=== PATIENT | male | born 1940 | race Caucasian/White ===

== ENCOUNTER 2017-07-31 06:25 | Day surgery (SDC) | payer MEDICARE ==
[~2017-07-31] VITALS: Ht 170.2 cm; Wt 87.5 kg
[~2017-07-31 06:25] MED LIST: ALTACE10 MG PO; AMITRIPTYLINE H25 MG PO; ANDROGEL2.5 G1 TD; ASPIRIN EC325 MG PO; ASPIRIN EC81 MG PO; CALCIUM 600 +1 EAC8 PO; CHILDREN'S ASPI81 M1 PO; CREON DR 6,0001 EACH PO; ECOTRIN325 MG PO; FEOSOL45 MG PO; FLUOXETINE HCL20 MG PO; GEMFIBROZIL600 MG PO; GLIPIZIDE XL10 MG PO; GLIPIZIDE XL5 MG PO; GLUCOPHAGE XR500 MG PO; KLOR-CON M2020 MEQ PO; LIPITOR20 MG PO; LIPITOR40 MG PO; MAGNESIUM400 M1 PO; METFORMIN HCL1000 MG PO; METFORMIN HCL500 MG PO; METOPROLOL SUCC25 MG PO; NORCO 5-325 TA1 EACH PO; OMEPRAZOLE20 MG PO; ONGLYZA5 MG PO; PERCOCET 5-3251 EACH PO; PROZAC10 MG PO; RAMIPRIL10 MG PO; TRELSTAR11.25 MG/2 IM; VENTOLIN HFA18 GM; VITAMIN C500 M2 PO; VITAMIN D2000 UNIT PO; [UNRECOGNIZED DRUG - OTHER] PO
--- NOTE | 2017-07-31 08:29 | NUR ---
07/31/17 0829 Verónica Lara 0806 RESP EVEN AND UNLABORED. RN GAVE REPORT OF LOWER BP, FLUIDS INCREASED. 0814 O2 DECREASED TO 2L NC, O2 SAT 100%. 0820 O2 REMOVED, O2 SAT 98% CONTINUING TO MONITOR BP. 0825 PT DRINKING SMALL SIPS OF WATER. BP 99/54.
--- NOTE | 2017-07-31 10:06 | OR ---
[facility] [address], [place] [address] Signed DATE OF OPERATION: 07/31/2017 SURGEON: Zach Cotter MD PREOPERATIVE DIAGNOSES: 1. History of colon cancer in December 2015, requiring right and sigmoid colectomy with part of ileum containing fistula. 2. Diverticulosis. POSTOPERATIVE DIAGNOSES: 1. A 4 mm polyp at 60 cm. 2. A 4 mm polyps x2 at 30 cm. 3. Colorectal anastomosis at 18 cm. 4. Internal anal skin tags x2. PROCEDURE: Colonoscopy with hot biopsy. ESTIMATED BLOOD LOSS: None. 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 Consequently, the sigmoid colon, the terminal ileum, and the right colon were all removed en bloc. Since that time, he has been doing well. He returns now for his annual followup colonoscopy. He has had diverticulosis in the past. He said he eats well and has good bowel movements. In fact, he has actually gained some weight. He said there is no family history of colon cancer or polyps. In the office, I reviewed colonoscopy with him along with its risks including, but not limited to, gas bloating, crampy abdominal pain, bleeding, perforation, requiring surgery, and missed diagnosis. We also discussed the need for IV conscious sedation. He expressed understanding and wished to proceed. PROCEDURE NOTE: Mari was taken into our endoscopy suite and placed in the left lateral decubitus position. He had received his preoperative antibiotics mainly because of his defibrillator. He was given divided doses of 4 mg of Versed and 100 mcg of fentanyl to cover the case. A digital rectal exam was performed and this was unremarkable. The adult colonoscope was introduced and advanced under direct visualization of camera up to his ileocolonic anastomosis. It was quite healthy without any evidence of recurrent Electronically Signed By: ZACH COTTER MD 07/31/17 1006 PATIENT NAME: MARI MACHADO OPERATIVE REPORT DATE OF : 40 PHYSICIAN: ZACH COTTER MD REPORT #: [id number] REPORT IS CONFIDENTIAL AND NOT TO BE RELEASED WITHOUT AUTHORIZATION [facility] [address], [place] [address] Signed disease and no granulation tissue or other issues. The scope was then slowly withdrawn. The above-mentioned polyps were removed with hot biopsy forceps. We saw no evidence of any diverticulosis. We can see his colorectal anastomosis at 18 cm. He has one silk stitch present on one area. Otherwise, it was quite clean. The rectum itself was unremarkable. Upon retroflexion of the scope, he has 2 internal anal skin tags. After this, the gas was suctioned out and the colonoscope removed. Mari tolerated the procedure quite well. RECOMMENDATIONS: I will see Mari back in my office in 7 to 14 days to review his results. He will need followup colonoscopy in a year. MD RIGOBERTO Starr/HILTONL /[id number] cc: MD Zach Lanier MD Dr. John Perry Robert C Quackenbush, MD Electronically Signed By: ZACH COTTER MD 07/31/17 1006 PATIENT NAME: MARI MACHADO OPERATIVE REPORT DATE OF : 40 PHYSICIAN: ZACH COTTER MD REPORT #: [id number] REPORT IS CONFIDENTIAL AND NOT TO BE RELEASED WITHOUT AUTHORIZATION
--- NOTE | 2017-07-31 11:12 | NUR ---
PT IS ALERT ORIENTED AND INFORMED. ROUTINE YEARLY SCOPE. PT FEELS VERY POSITIVE ABOUT A GOOD OUTCOME FROM SCOPE. PT REQUESTED PRAYER, WILL FOLLOW NEEDED
[2017-12-12] MEDS ORDERED: VITAMIN C500 M4 PO (10:54)
== END 2017-07-31 08:55 | disposition home or self-care (01) ==
LOC: OPS 06:25 → DS 06:25 → OPS 06:45
PROVIDERS: Colon & Rectal Surgery
PROC: 0DBE8ZX Excision of Large Intestine, Via Natural or Artificial Opening Endoscopic, Diagnostic (ICD-10-PCS; principal; 2017-07-31 06:45)
DX: Z12.11 Encounter for screening for malignant neoplasm of colon (principal); D12.6 Benign neoplasm of colon, unspecified; K63.89 Other specified diseases of intestine; K64.4 Residual hemorrhoidal skin tags; I25.2 Old myocardial infarction; I10 Essential (primary) hypertension; K44.9 Diaphragmatic hernia without obstruction or gangrene; K21.9 Gastro-esophageal reflux disease without esophagitis; E78.5 Hyperlipidemia, unspecified; E87.6 Hypokalemia; E11.9 Type 2 diabetes mellitus without complications; F32.9 Major depressive disorder, single episode, unspecified; M54.30 Sciatica, unspecified side; F41.9 Anxiety disorder, unspecified; D64.9 Anemia, unspecified; Z98.42 Cataract extraction status, left eye; Z98.41 Cataract extraction status, right eye; Z85.038 Personal history of other malignant neoplasm of large intestine; Z90.49 Acquired absence of other specified parts of digestive tract; Z90.89 Acquired absence of other organs; Z95.810 Presence of automatic (implantable) cardiac defibrillator; Z90.79 Acquired absence of other genital organ(s); Z98.890 Other specified postprocedural states; Z96.89 Presence of other specified functional implants; Z98.61 Coronary angioplasty status; Z85.118 Personal history of other malignant neoplasm of bronchus and lung; Z85.46 Personal history of malignant neoplasm of prostate; Z79.82 Long term (current) use of aspirin; Z79.899 Other long term (current) drug therapy
CPT/HCPCS: 88305; 99153; G0500; J2250; J3010; J7120

== ENCOUNTER 2018-08-27 10:12 | Emergency (ER) | payer MEDICARE ==
[~2018-08-27] VITALS: Ht 170.2 cm; Wt 93.0 kg
[~2018-08-27 10:12] MED LIST changes: +CALCIUM600 MG PO; +GLUCOTROL XL10 MG PO; +METOPROLOL SUC100 MG PO; +METOPROLOL SUCC50 MG PO; -PROZAC10 MG PO; +PROZAC20 MG PO; +VITAMIN C500 M4 PO
[2018-08-27] MEDS ORDERED: NORCO 5-325 TA1 EACH PO (11:07)
== END 2018-08-27 11:53 | disposition home or self-care (01) ==
LOC: ED 10:12
DX: S52.502A Unspecified fracture of the lower end of left radius, initial encounter for closed fracture (principal); W19.XXXA Unspecified fall, initial encounter; K21.9 Gastro-esophageal reflux disease without esophagitis; E11.9 Type 2 diabetes mellitus without complications; D64.9 Anemia, unspecified; Z87.891 Personal history of nicotine dependence; E78.00 Pure hypercholesterolemia, unspecified; Z88.0 Allergy status to penicillin; Z79.899 Other long term (current) drug therapy; Z79.84 Long term (current) use of oral hypoglycemic drugs; Z79.82 Long term (current) use of aspirin; Z85.46 Personal history of malignant neoplasm of prostate
CPT/HCPCS: 29125; 73110; 99283-25

== ENCOUNTER 2018-11-12 07:10 | Day surgery (SDC) | payer MEDICARE ==
[~2018-11-12] VITALS: Ht 170.2 cm; Wt 93.0 kg
[~2018-11-12 07:10] MED LIST changes: +GLIPIZIDE ER10 MG PO; +LISINOPRIL2.5 MG PO
--- NOTE | 2018-11-12 08:56 | NUR ---
11/12/18 0856 Verónica Balderrama 9075 PT ARRIVED TO PACU ON 3L VIA NC, RESP EVEN AND UNLABROED. PT DENIES PAIN AND NAUSEA. PLAN OF CARE DISCUSSED. PT ASLEEP OFF AND ON. ABD SOFT.
--- NOTE | 2018-11-12 09:51 | NUR ---
PT IS RELAXED, ALERT AND ORIENTED. HIS NICK ARRIVED, PT IS CALM AND IN HOPES THIS WILL BE THE LAST SCOPE FOR 3 YRS. WITH PT'S MED HISTORY THIS WOULD BE A BIG WIN! PT REQUESTED PRAYER, WILL FOLLOW NEEDED
--- NOTE | 2018-11-13 06:01 | OR ---
[facility] [address], [place] [address] Signed DATE OF OPERATION: 11/12/2018 SURGEON: Zach Cotter MD PREOPERATIVE DIAGNOSES: 1. T4 sigmoid colon cancer involving the sigmoid colon, terminal ileum in 2016. 2. Diverticulosis. POSTOPERATIVE DIAGNOSES: 1. 4 mm polyps x2 at 32 cm. 2. A red lesion/area on distal left colon staple line (4 mm). 3. Fcsprxu-yb-ekegvmff internal hemorrhoids with skin tags. 4. Colorectal anastomosis at 18 cm. PROCEDURE PERFORMED: Colonoscopy with hot biopsy. ESTIMATED BLOOD LOSS: None. INDICATIONS: Mari is a 78-year-old gentleman who came to us in 2016 with a T4 sigmoid colon cancer. It required resection of sigmoid colon, the terminal ileum and right colectomy. He has a Johnson side-to-end colorectal anastomosis and a stapled ileocolonic anastomosis to the proximal transverse colon. He is known to have some diverticulosis, although I did not see that today. He returns now for a followup colonoscopy. Because of his testing by his oncologist, he did not require any chemotherapy as his tumor would not respond to it. In the meantime, he said he is doing great. He does have a defibrillator. In the office, I gave Mari a pamphlet on colonoscopy and we did review that together. Of course, he understands it quite well at this point in his life. He understands there is risk including, but not limited to gas, bloating, crampy abdominal pain, bleeding, perforation, requiring surgery, and missed diagnosis. He has also done well with Versed and fentanyl in the past. He expressed understanding and wished to proceed. DESCRIPTION OF PROCEDURE: Mari was taken into the endoscopy suite and placed in a left lateral decubitus position. We went ahead and gave him some IV antibiotics because of his defibrillator. He was given 2 mg of Versed and 75 mcg fentanyl to cover the case. A digital rectal exam was performed and he has no prostate gland. He has good sphincter tone. Very little in the way of external hemorrhoid tissue. The adult colonoscope was then Electronically Signed By: ZACH COTTER MD 11/13/18 0601 PATIENT NAME: MARI MACHADO OPERATIVE REPORT DATE OF : 40 REPORT #: [id number] PHYSICIAN: ZACH COTTER MD PCP: ROSALIA CHAMBERS MD REPORT IS CONFIDENTIAL AND NOT TO BE RELEASED WITHOUT AUTHORIZATION [facility] [address], [place] [address] Signed introduced and advanced all around into the proximal transverse colon without difficulty. His prep was average. He had some areas of liquid mucousy stool. I could not quite irrigate and suctioned off completely. The ileocolonic anastomosis was unremarkable. The scope was slowly withdrawn. We took out two small polyps at 32 cm with hot biopsy forceps. When I got to the distal left colon, I could see the staple line. There was one area that was a little red, probably just reaction to the sierra. I went ahead and took a hot biopsy of that area and destroyed that completely. The anastomosis itself was well healed. There was no evidence of any recurrent cancer. There is no ulceration on the anastomosis. It is widely patent. The rectum itself was unremarkable. Upon retroflexion of scope, he does have bmklxpo-[id number] internal hemorrhoid columns with associated skin tags x2. After this, the gas was suctioned out, colonoscope removed. Mari tolerated procedure quite well. RECOMMENDATIONS: I will see Mari back in my office in 7 to 14 days to review his results. Zach Cotter MD ALB/MODL /[id number] cc: MD Rosalia Kumar MD Robert C Quackenbush, MD Zach Cotter MD Copies: ROSALIA CHAMBERS MD,ZACH ROCHE MD, MD ~ Electronically Signed By: ZACH COTTER MD 11/13/18 0601 PATIENT NAME: MARI MACHADO OPERATIVE REPORT DATE OF : 40 REPORT #: [id number] PHYSICIAN: ZACH COTTER MD PCP: ROSALIA CHAMBERS MD REPORT IS CONFIDENTIAL AND NOT TO BE RELEASED WITHOUT AUTHORIZATION
== END 2018-11-12 09:19 | disposition home or self-care (01) ==
LOC: DS 07:10 → OPS 07:10 → DS 08:15 → OPS 08:15
PROVIDERS: Colon & Rectal Surgery
PROC: 0DBG8ZX Excision of Left Large Intestine, Via Natural or Artificial Opening Endoscopic, Diagnostic (ICD-10-PCS; 2018-11-12)
PROC: 0DBE8ZZ Excision of Large Intestine, Via Natural or Artificial Opening Endoscopic (ICD-10-PCS; principal; 2018-11-12 08:15)
DX: Z12.11 Encounter for screening for malignant neoplasm of colon (principal); D12.6 Benign neoplasm of colon, unspecified; K64.8 Other hemorrhoids; Z98.0 Intestinal bypass and anastomosis status; Z88.0 Allergy status to penicillin; Z79.82 Long term (current) use of aspirin; Z79.899 Other long term (current) drug therapy
CPT/HCPCS: 99153; G0500; J2250; J3010; J7120

== ENCOUNTER 2020-05-16 16:05 | Emergency (ER) | payer MEDICARE ==
[~2020-05-16] VITALS: Ht 170.2 cm; Wt 91.6 kg
[~2020-05-16 16:05] MED LIST changes: +ATROVENT HFA12.9 GM INH; +ELIGARD22.5 MG SUB-Q; +SPIRIVA RESPIMAT4 G1 INH; +WIXELA 500-501 EACH INH
== END 2020-05-16 23:53 | disposition home or self-care (01) ==
LOC: ED 16:05
DX: S01.111A Laceration without foreign body of right eyelid and periocular area, initial encounter (principal); S01.311A Laceration without foreign body of right ear, initial encounter; S63.501A Unspecified sprain of right wrist, initial encounter; W22.8XXA Striking against or struck by other objects, initial encounter; K21.9 Gastro-esophageal reflux disease without esophagitis; E11.9 Type 2 diabetes mellitus without complications; D64.9 Anemia, unspecified; E78.00 Pure hypercholesterolemia, unspecified; Z87.891 Personal history of nicotine dependence; Z85.46 Personal history of malignant neoplasm of prostate; Z88.0 Allergy status to penicillin; Z79.899 Other long term (current) drug therapy; Z79.84 Long term (current) use of oral hypoglycemic drugs; Z79.82 Long term (current) use of aspirin
CPT/HCPCS: 12015; 70450; 70486; 72125; 73110; 90471; 90715; 99284-25

== ENCOUNTER 2023-04-22 18:33 | Emergency (ER) | payer MEDICARE ==
[~2023-04-22] VITALS: Ht 170.2 cm; Wt 92.5 kg
[~2023-04-22 18:33] MED LIST changes: +DEXAMETHASONE4 MG PO; +FLUTICASONE-SA1 EAC5 INH; +IPRATROPIUM BRO15 ML NAS; +LANTUS SOL100 UNIT/1 SUB-Q; +PAXLOVID 150-11 EACH PO; +SPIRIVA18 MCG INH
[2023-04-22 19:42] VITALS: BP 123/66
== END 2023-04-22 19:40 | disposition home or self-care (01) ==
LOC: ED 18:33
DX: S52.22 Transverse fracture of shaft of ulna (principal); W18.39XA Other fall on same level, initial encounter; E11.9 Type 2 diabetes mellitus without complications; K21.9 Gastro-esophageal reflux disease without esophagitis; Z23 Encounter for immunization; Z87.891 Personal history of nicotine dependence; Z88.0 Allergy status to penicillin; Z88.8 Allergy status to other drugs, medicaments and biological substances; Z79.899 Other long term (current) drug therapy; Z79.4 Long term (current) use of insulin; Z79.84 Long term (current) use of oral hypoglycemic drugs; Z79.82 Long term (current) use of aspirin
CPT/HCPCS: 73090; 90715

== ENCOUNTER 2023-05-22 11:27 | Emergency (ER) | payer MEDICARE ==
[~2023-05-22] VITALS: Ht 170.2 cm; Wt 89.4 kg
--- OUTSIDE RECORDS SUMMARY | 2023-05-22 11:30 | XMS ---
PreManage Notification: MARI MACHADO Security Clinical Rn Manager Events No recent Security Events currently on file CRITERIA MET - [facility] - 2 Visits in 30 Days CARE PROVIDERS There are no care providers on record at this time. Nel has no Care Guidelines for this patient. Sunny VISIT COUNT (12 MO.) [address] [facility] TOTAL 3 NOTE: Visits indicate total known visits. ED/C VISIT TRACKING (12 MO.) 05/22/2023 11:27 [facility] [place] TYPE: Emergency COMPLAINT: - DEFIB MALFUNCTION 04/22/2023 18:35 [facility] TYPE: Emergency COMPLAINT: - POSS BROKEN L ARM DIAGNOSES: - Allergy status to other drugs, medicaments and biological substances - Allergy status to penicillin - Encounter for immunization - Gastro-esophageal reflux disease without esophagitis - buttermaker helper (current) use of aspirin - longterm (current) use of insulin - longterm (current) use of oral hypoglycemic drugs - Nondisplaced transverse fracture of shaft of left ulna, initial encounter for open fracture type I or II - Other fall on same level, initial encounter - Other intermediate card tender (current) drug therapy - Pain in left forearm - Personal history of nicotine dependence - Type 2 diabetes mellitus without complications 03/14/2023 18:28 [facility] TYPE: Emergency COMPLAINT: - SOB/FEVER INPATIENT VISIT TRACKING (12 MO.) 03/14/2023 18:[address] [facility] [place] TYPE: Observation COMPLAINT: - COVID DIAGNOSES: - Acute respiratory distress syndrome - Allergy status to other drugs, medicaments and biological substances - Allergy status to penicillin - Atherosclerotic heart disease of [place] coronary artery without angina pectoris - Chronic obstructive pulmonary disease, unspecified - COVID-19 - Elevated white blood cell count, unspecified - Elevation of levels of lactic acid dehydrogenase [LDH] - buttermaker helper (current) use of insulin - Other intermediate card tender (current) drug therapy - Type 2 diabetes mellitus without complications - Unspecified atrial fibrillation [email or web address]
[2023-05-22 12:11] LABS: BASOPHILS 0.5 % (0-2); EOSINOPHILS 1.1 % (0-6); HEMATOCRIT 39.7 % (35.0-50.0); HEMOGLOBIN 13.1 g/dL (12.0-18.0); LYMPHOCYTES 19.2 % (24-44); MCH 28.1 (27-36); MCV 85.3 fl (81-99); MONOCYTES 6.2 % (0-12); PLATELET COUNT 293 K/uL (140-440); RBC 4.65 M/ul (4.3-5.7); RDW 15.7 (10.5-15.0)
[2023-05-22 12:35] LABS: ALBUMIN 3.2 g/dL (3.4-5.0); ALBUMIN/GLOBULIN RATIO 0.84 (1.1-2.4); BILIRUBIN, TOTAL 0.5 ng/dL (0.2-1.0); BUN/CREATININE RATIO 18.34 (6.0-28.6); CALCIUM 8.6 mg/dL (8.5-10.1); CREATININE, SERUM 1.09 mg/dL (0.70-1.30); MAGNESIUM 1.4 mg/dL (1.8-2.4)
[2023-05-22 13:52] LABS: BASOPHILS 0.7 % (0-2); EOSINOPHILS 0.6 % (0-6); HEMATOCRIT 37.8 % (35.0-50.0); HEMOGLOBIN 12.5 g/dL (12.0-18.0); LYMPHOCYTES 17.6 % (24-44); MCH 27.9 (27-36); MCHC 33.1 g/dl (30-36); MCV 84.5 fl (81-99); MONOCYTES 5.9 % (0-12); NEUTROPHILS 75.2 % (39-80); PLATELET COUNT 301 K/uL (140-440); RBC 4.48 M/ul (4.3-5.7); RDW 15.7 (10.5-15.0)
[2023-05-22 14:01] LABS: INR 1.02 (0.80-1.30)
[2023-05-22 14:18] LABS: PARTIAL THROMBOPLASTIN TIME 29.8 Sec (22.9-41.3)
[2023-05-23 00:15] VITALS: BP 130/67
--- NOTE | 2023-05-23 13:17 | EKG ---
[facility] [address] [facility] [place] [address] Signed Sinus tachycardia Rightward axis Inferior infarct , age undetermined Abnormal ECG similar to previous ekg Confirmed by ALEKSANDR ARELLANO MD ([id number]) on 05/23/2023 1:17:31 PM Electronically Signed By: ALEKSANDR ARELLANO 05/23/23 1317 PATIENT NAME: MARI MACHADO Electrocardiogram DATE OF : 40 PHYSICIAN: ALEKSANDR ARELLANO REPORT #: [id number] REPORT IS CONFIDENTIAL AND NOT TO BE RELEASED WITHOUT AUTHORIZATION
== END 2023-05-23 00:15 | disposition short-term general hospital (02) ==
LOC: ED 11:27
PROVIDERS: Emergency Medicine
DX: I21.4 Non-ST elevation (NSTEMI) myocardial infarction (principal); I49.8 Other specified cardiac arrhythmias; E11.9 Type 2 diabetes mellitus without complications; E78.00 Pure hypercholesterolemia, unspecified; I25.10 Atherosclerotic heart disease of native coronary artery without angina pectoris; Z11.52 Encounter for screening for COVID-19; Z88.0 Allergy status to penicillin; Z88.8 Allergy status to other drugs, medicaments and biological substances; Z79.84 Long term (current) use of oral hypoglycemic drugs; Z79.899 Other long term (current) drug therapy; Z79.4 Long term (current) use of insulin; Z79.51 Long term (current) use of inhaled steroids; Z79.82 Long term (current) use of aspirin; Z95.810 Presence of automatic (implantable) cardiac defibrillator
CPT/HCPCS: 36415; 71045; 80053; 83735; 83880; 84484; 85025; 85610; 85730; 93005; 93010; 96365; 96375; 96376; 99285-25; C9803; J1644; J3475; U0002

== ENCOUNTER 2023-06-28 06:57 | Day surgery (SDC) | payer MEDICARE ==
[2023-06-26 09:40] VITALS: BP 108/62
[~2023-06-28] VITALS: Ht 170.2 cm; Wt 93.6 kg
[2023-06-28 07:13] VITALS: BP 132/58
--- NOTE | 2023-06-28 09:06 | NUR ---
06/28/23 0906 Martita Licea 0857- PT ARRIVES TO PACU, LEFT LATERAL POSITION. LR INFUSING TO RH. PT REACTIVE TO STIMULUS AND WAKES MASK REMOVED FROM FACE. O2 MASK IN PLACE, NOT CONNECTED TO OXYGEN. ABD SOFT, NON DISTENDED. ALL MONITORS IN PLACE, DENIES PAIN AND NAUSEA. ENCOURAGED TO STAY ON LEFT SIDE AND PASS GAS.
[2023-06-28 09:19] VITALS: BP 119/66
--- NOTE | 2023-06-28 10:42 | OR ---
[facility] [address] [place], [place] [address] Signed DATE OF OPERATION: 06/28/2023 SURGEON: Zach Cotter MD PREOPERATIVE DIAGNOSES: 1. Stage II sigmoid colon cancer in 2016 at age 75. 2. Sigmoid colectomy, right colectomy and resection of terminal ileum in 2016. 3. Johnson colorectal anastomosis at 18 cm. 4. An ileal colonic antiperistaltic stapled anastomosis, proximal transverse colon. 5. History of adenomatous colonic polyps. 6. Diverticulosis. 7. Internal hemorrhoids. POSTOPERATIVE DIAGNOSES: 1. Ileocolonic anastomosis at approximately 80 cm. 2. Colorectal anastomosis at 18 cm. 3. Internal and external hemorrhoids with associated skin tags. 4. 4-7 mm polyps x4 at 70 cm in mid transverse colon (snare). 5. 7 mm polyp at 60 cm in left colon. 6. 7 mm polyp at 52 cm in left colon (snare). 7. No obvious diverticulosis. PROCEDURE: Colonoscopy with hot biopsy and snare polypectomy. ESTIMATED BLOOD LOSS: None. INDICATIONS: Mari is an 82-year-old gentleman, who came in 2016 for stage II sigmoid colon cancer. It required resection of the sigmoid colon along with some terminal ileum and right colectomy to be removed en bloc. He did not require any chemotherapy. He has internal hemorrhoids and diverticulosis. I repeated the colonoscopy in 2017, 2018 and 2019. He did have some adenomatous polyps removed. He always had some internal hemorrhoids. We asked him to follow up in three years. He said overall he has been doing well. He is now dealing with bladder cancer. He said the medical oncologists have been following him very closely. He said everything has been coming back with good results. He is also known to have previous prostate cancer. In the office, I gave Mari and his a pamphlet on colonoscopy. We reviewed the nature of the test. There is risk including, but not limited to gas bloating, crampy abdominal pain, bleeding, perforation requiring Electronically Signed By: ZACH COTTER MD 06/28/23 1042 PATIENT NAME: MARI MACHADO OPERATIVE REPORT DATE OF : 40 REPORT #: [id number] PHYSICIAN: ZACH COTTER MD PCP: KYM GRACE MD REPORT IS CONFIDENTIAL AND NOT TO BE RELEASED WITHOUT AUTHORIZATION [facility] [address] [place] [id number] Signed surgery, and missed diagnosis. We also reviewed the need for monitored anesthesia care given his advancing age, his decreasing functional status, his COPD and now his defibrillator. He had expressed understanding and wished to proceed. DESCRIPTION OF PROCEDURE: Mari was taken into our endoscopy suite and placed in the left lateral decubitus position. He was given monitored anesthesia care with propofol infusion per our nurse warehouseman. A digital rectal exam was performed. He had some small external hemorrhoids. He had good sphincter tone. There were no masses. His prostate is gone. The adult colonoscope was introduced and advanced under direct visualization of the camera. We had some trouble with liquidy particulate stool matter that took some time to irrigate and suction out. We worked our way through the colorectal anastomosis and up to the proximal transverse colon. We could easily see the antiperistaltic [id number]-gh-[id number] stapled anastomosis. No evidence of any recurrence on the staple line. In the future, he could use a little more prep. The scope was then slowly withdrawn. We removed the above mentioned polyps. We did not see any diverticula on this occasion. Once in the rectum, the scope was retroflexed and we could see some internal hemorrhoid tissue and at least two internal anal skin tags. The colorectal anastomosis is widely patent without any evidence of recurrence. After this, the gas was suctioned out and the colonoscope removed. Mari tolerated the procedure quite well. RECOMMENDATIONS: I will see Mari back in my office in 7 to 14 days to review his results. He might consider additional bowel prep in the future. He should probably come back on a short interval, maybe as early as three months but not past 18 months given his bowel prep. Zach Cotter MD [facility]/MODL /[id number] cc: MD Monty Starr MD Electronically Signed By: ZACH COTTER MD 06/28/23 1042 PATIENT NAME: MARI MACHADO OPERATIVE REPORT DATE OF : 40 REPORT #: [id number] PHYSICIAN: ZACH COTTER MD PCP: KYM GRACE MD REPORT IS CONFIDENTIAL AND NOT TO BE RELEASED WITHOUT AUTHORIZATION [address] [address] Signed Copies: ZACH COTTER MD, RUSSELL BARR MD ~ Electronically Signed By: ZACH COTTER MD 06/28/23 1042 PATIENT NAME: MARI MACHADO OPERATIVE REPORT DATE OF : 40 REPORT #: [id number] PHYSICIAN: ZACH COTTER MD PCP: KYM GRACE MD REPORT IS CONFIDENTIAL AND NOT TO BE RELEASED WITHOUT AUTHORIZATION
== END 2023-06-28 09:30 | disposition home or self-care (01) ==
LOC: DS 06:57
PROVIDERS: ATTEND Colon & Rectal Surgery
PROC: 0DBL8ZX Excision of Transverse Colon, Via Natural or Artificial Opening Endoscopic, Diagnostic (ICD-10-PCS; 2023-06-28)
PROC: 0DBG8ZX Excision of Left Large Intestine, Via Natural or Artificial Opening Endoscopic, Diagnostic (ICD-10-PCS; principal; 2023-06-28 08:15)
DX: Z12.11 Encounter for screening for malignant neoplasm of colon (principal); D12.4 Benign neoplasm of descending colon; D12.3 Benign neoplasm of transverse colon; K64.8 Other hemorrhoids; K64.4 Residual hemorrhoidal skin tags; Z85.038 Personal history of other malignant neoplasm of large intestine; Z86.010 Personal history of colon polyps; Z90.49 Acquired absence of other specified parts of digestive tract; C67.9 Malignant neoplasm of bladder, unspecified; I25.10 Atherosclerotic heart disease of native coronary artery without angina pectoris; I25.2 Old myocardial infarction; I11.0 Hypertensive heart disease with heart failure; I50.22 Chronic systolic (congestive) heart failure; J44.9 Chronic obstructive pulmonary disease, unspecified; E11.9 Type 2 diabetes mellitus without complications; Z85.46 Personal history of malignant neoplasm of prostate; Z90.79 Acquired absence of other genital organ(s); Z88.0 Allergy status to penicillin; Z79.4 Long term (current) use of insulin; Z79.899 Other long term (current) drug therapy
CPT/HCPCS: 00811; 88305; J0690; J2001; J2371; J2704; J7121

== ENCOUNTER 2024-07-25 13:31 | Emergency (ER) | payer MEDICARE ==
[~2024-07-25] VITALS: Ht 175.3 cm; Wt 89.8 kg
[2024-07-25 15:01] LABS: EOSINOPHILS 1.2 % (0-6); HEMATOCRIT 39.2 % (35.0-50.0); HEMOGLOBIN 12.6 g/dL (12.0-18.0); LYMPHOCYTES 18.5 % (24-44); MCHC 32.3 g/dl (30-36); MCV 83.9 fl (81-99); MONOCYTES 6.6 % (0-12); NEUTROPHILS 72.7 % (39-80); PLATELET COUNT 335 K/uL (140-440); RBC 4.67 M/ul (4.3-5.7); RDW 16.1 (10.5-15.0)
[2024-07-25 15:06] LABS: BILIRUBIN, URINE NEGATIVE (negative); BLOOD/HGB, URINE LARGE (Negative); KETONE, URINE TRACE (Negative); LEUK ESTERASE, URINE TRACE (negative); NITRITE, URINE NEGATIVE (negative)
[2024-07-25 15:12] LABS: BACTERIA, URINE RARE /hpf (negative); CASTS, URINE NONE SEEN \\lpf; CRYSTALS, URINE NONE SEEN (0-1+); EPITHELIAL CELLS, URINE SQUAMOUS 1+ /lpf (0-1+); RED BLOOD CELLS, URINE >50 /hpf (0-5)
[2024-07-25 15:13] LABS: COLLECTION TYPE, URINE CLEAN CATCH; REFLEX CULTURE, URINE Yes (No)
[2024-07-25 15:15] LABS: ALBUMIN 2.9 g/dL (3.4-5.0); ALBUMIN/GLOBULIN RATIO 0.76 (1.1-2.4); ANION GAP 13.7 (7-21); BILIRUBIN, TOTAL 0.3 ng/dL (0.2-1.0); BUN/CREATININE RATIO 14.87 (6.0-28.6); CALCIUM 9.3 mg/dL (8.5-10.1); CREATININE, SERUM 1.21 mg/dL (0.70-1.30); POTASSIUM 4.7 mmol/L (3.5-5.1); PROTEIN, TOTAL 6.7 g/dL (6.4-8.2)
[2024-07-25] MEDS ORDERED: HYOSCYAMINE SULFATE 0.375 MG TAB.ER.12H PO PRN (16:00)
[2024-07-25] MEDS ORDERED: MORPHINE SULFATE 30 MG TABCR PO ONE (16:00)
[2024-07-25] MEDS ORDERED: ANASPAZ0.125 MG PO (16:00)
[2024-07-25] MEDS ORDERED: HYDROCODON-ACE1 EA10 PO (16:06)
[2024-07-25] MEDS ORDERED: HYOSCYAMINE SULFATE 0.375 MG TAB.ER.12H PO ONE (16:15)
[2024-07-25 16:26] VITALS: BP 121/58
== END 2024-07-25 16:27 | disposition home or self-care (01) ==
LOC: ED 13:31
PROVIDERS: Emergency Medicine
DX: N32.89 Other specified disorders of bladder (principal); E11.9 Type 2 diabetes mellitus without complications; K21.9 Gastro-esophageal reflux disease without esophagitis; E78.00 Pure hypercholesterolemia, unspecified; Z98.890 Other specified postprocedural states; Z87.891 Personal history of nicotine dependence; Z88.0 Allergy status to penicillin; Z88.8 Allergy status to other drugs, medicaments and biological substances; Z79.899 Other long term (current) drug therapy; Z79.84 Long term (current) use of oral hypoglycemic drugs; Z79.82 Long term (current) use of aspirin
CPT/HCPCS: 36415; 51798; 80053; 81001; 85025; 87088; 99283